=== PATIENT | female | born 1945 | race Two or more races ===

== ENCOUNTER 2025-01-12 05:44 | Emergency (ER) | payer MEDICARE, OTHER ==
[~2025-01-12 05:44] MED LIST: ASPI1TAB20 PO; ATOR20TA; BENA10TA90 PO; GLIM4TAB42 PO; GLYB1.257; LISI40TA16; METO-289; OMEP20CA74 OR; SIMV40TA18 PO
--- NOTE | 2025-01-12 06:51 | ED.PDOC ---
Jam. trauma (HPI) HPI Comments 79-year-old female presents to the ER with daughter and the chief complaint of right-sided rib pain. Patient's daughter reports that the patient fell two weeks ago, and had been complaining of right-sided rib pain. Symptoms rated as mild but concerns for fracture. Denies any other symptoms at this moment. Chief Complaint: Rib Pain Time Seen by MD: 06:50 Primary Care Provider: YAZ Anna notes: Nurses Notes, Medications, Allergies Allergies: Coded Allergies: NO KNOWN ALLERGIES (Unverified , 06/14/10) Home Meds Reported Medications Aspirin (Aspir-81) 81 Mg Tab, 1 TAB PO DAILY, #30 TAB 5 Refills 12/14/13 Glimepiride (Glimepiride) 4 Mg Tab, 1 TAB PO DAILY, #30 TAB 5 Refills 12/14/13 Benazepril Hcl (Benazepril Hcl) 10 Mg Tab, 1 TAB PO DAILY, #30 TAB 5 Refills 12/14/13 Simvastatin (Simvastatin) 40 Mg Tab, 1 TAB PO QPM, #30 TAB 5 Refills 12/14/13 Omeprazole (PRILOSEC) 20 Mg Cap, 40 MG OR DAILY, CAP 12/14/13 Metoprolol Succinate (Metoprolol Succinate Er) 50 Mg Tab 06/14/10 Lisinopril (Lisinopril) 40 Mg Tab 06/14/10 Atorvastatin Calcium (Lipitor) 20 Mg Tab 06/14/10 Glyburide (Glyburide) 1.25 Mg Tab 06/14/10 Information Source: Patient Mode of Arrival: Ambulatory Severity: Moderate Timing: Weeks Duration: Since onset Prehospital treatment: None Location: Chest (Right-sided rib pain) Location of laceration: None Mechanism: Fall (Two weeks ago) Associated signs and symtoms: None Past Medical History PAST MEDICAL HISTORY: Dementia, DM, GERD, High Lipids, HTN Surgical History: Cholecystectomy Surgical History (Other): Bilateral knee replacement BASIC SCIENCES DEAN History: No Pertinent BASIC SCIENCES DEAN History Family History Family History: Reviewed,noncontributory to illness, Unknown Social History Smoker: Non-Smoker Alcohol: Denies ETOH Use Drugs: Denies Drug Use Lives In: Home Constitutional: denies: chills, diaphoresis, fatigue, fever, malaise, sweats, weakness, others EENTM: denies: blurred vision, double vision, ear bleeding, ear discharge, ear drainage, ear pain, ear ringing, eye pain, eye redness, hearing loss, mouth pain, mouth swelling, nasal discharge, nose bleeding, nose congestion, nose pain, photophobia, tearing, throat pain, throat swelling, voice changes, others Respiratory: denies: cough, hemoptysis, orthopnea, SOB at rest, shortness of breath, SOB with excertion, stridor, wheezing, others Cardiovascular: denies: chest pain, dizzy spells, diaphoresis, Dyspnea on exertion, edema, irregular heart beat, left arm pain, lightheadedness, palpitations, PND, syncope, others Gastrointestinal: denies: abdomen distended, abdominal pain, blood streaked bowels, constipated, diarrhea, dysphagia, difficulty swallowing, hematemesis, melena, nausea, poor appetite, poor fluid intake, rectal bleeding, rectal pain, vomiting, others Genitourinary: denies: abnormal vagina bleeding, burning, dyspareunia, dysuria, flank pain, frequency, hematuria, incontinence, pain, , vagina discharge, urgency, others Neurological: denies: dizziness, fainting, headache, left sided numbness, left sided weakness, numbness, paresthesia, pre-existing deficit, right sided numbness, right sided weakness, seizure, speech problems, tingling, tremors, weakness, others Musculoskeletal: reports: others (Right-sided rib pain S/P fall); denies: back pain, gout, joint pain, joint swelling, muscle pain, muscle stiffness, neck pain Integumetry: denies: bruises, change in color, change in hair/nails, dryness, laceration, lesions, lumps, rash, wounds, others Allergic/Immunocompromised: denies: Difficulty Healing, Frequent Infections, Hives, Itching, others Hematologic/Lymphatic: denies: anemia, blood clots, easy bleeding, easy bruising, swollen glands, others Endocrine: denies: excessive hunger, excessive sweating, excessive thirst, excessive urination, flushing, intolerance to cold, intolerance to heat, unexplained weight gain, unexplained weight loss, others Psychiatric: denies: anxiety, bipolar disorder, depression, hopeless, panic disorder, schizophrenia, sleepless, suicidal, others All Other Systems: Reviewed and Negative Physical Exam General Appearance: No Apparent Distress, Normal HEENT: Normal ENT Inspection, Pharynx Normal, TMs Normal Neck: Full Range of Motion, Non-Tender, Normal, Normal Inspection Respiratory: Chest Non-Tender, Lungs Clear, No Accessory Muscle Use, No Respiratory Distress, Normal Breath Sounds Cardiovascular: No Edema, No JVD, No Murmur, No Gallop, Normal Peripheral Pulses, Regular Rate/Rhythm Breast Exam: Deferred Gastrointestinal: No Organomegaly, Non Tender, No Pulsatile Mass, Normal Bowel Sounds, Soft Genitalia: Deferred Pelvic: Deferred Rectal: Deferred Extremities: No calf tenderness, Normal capillary refill, Normal inspection, Normal range of motion, Non-tender, No pedal edema Musculoskeletal : Apperance: Normal Neurologic: Alert, shirt folding machine operator II-XII nml as Tested, No Motor Deficits, Normal Affect, Normal Mood, No Sensory Deficits Cerebellar Function: Normal Reflexes: Normal Skin: Dry, Normal Color, Warm Lymphatic: No Adenopathy Was a procedure done? Was a procedure done?: No Differential Diagnosis Multiple Trauma: Fractures, Other X-Ray, Labs, Meds, VS Vital Signs Date Time Temp Pulse Resp B/P (MAP) Pulse Ox O2 Delivery O2 Flow Rate FiO2 01/12/25 08:42 97.9 84 17 142/68 (92) 97 97.9 01/12/25 08:42 84 16 97 Room Air 01/12/25 05:46 97.9 86 16 147/71 96 97.9 X-Ray, Labs, Meds, VS Comment 79-year-old female presents to the ER with daughter and the chief complaint of right-sided rib pain. Patient arrives alert and oriented, ABC's intact, afebrile, vital signs stable, saturating well in room air Diagnostic imaging ordered by me and results interpreted by radiology :xray Patient is stable for discharge at this time. External notes reviewed. Test results and diagnostic imaging interpreted. All diagnostic findings, discharge care, education and instructions provided Follow-up with PCP in 2 to 3 days Patient verbalized understanding and agreed to treatment plan Vital signs stable, afebrile, no acute distress noted Patient ambulatory with strong steady gait Advised to return precautions for any new or worsening symptoms, return to ER immediately for re-evaluation Patient is aware that the purpose of this visit was for an acute medical emerg ency requiring emergent stabilization. Chronic conditions, including malignancies have not been ruled out. Patient is instructed to follow up with PCP as directed and discharge instructions for continued care and workup. If unable to arrange follow-up, patient is to return to the emergency department for reassessment. Patient (parent or legal guardian if applicable) was given ve rbal and written discharge instructions and acknowledges understanding. Time of 1ST Reevaluation: 07:20 Reevaluation 1ST: Improved Patient Education/Counseling: Diagnosis, Treatment, Prognosis Family Education/Counseling: Diagnosis, Treatment, Prognosis Departure 1 Departure Time of Disposition: 08:32 Impression: Primary Impression: Hip arthritis Qualified Codes: M16.11 - Unilateral primary osteoarthritis, right hip Disposition: 01 HOME / SELF CARE / HOMELESS Condition: Stable Discharged With: Relative Critical Care Note Critical Care Time?: No Stability Stability form required: No Heart Score Heart Score: Heart Score Response (Comments) Value History N/A 0 EKG N/A 0 Age N/A 0 Risk Factors N/A 0 Troponin N/A 0 Total 0 I personally scribed for BRYSON SMITH NP ([email or web address]) on 01/12/25 at 06:51. Electronically submitted by Juan Antonio Schulz ([employer]). I personally scribed for BRYSON SMITH NP ([email or web address]) on 01/12/25 at 07:13. Electronically submitted by Juan Antonio Schulz ([employer]). BRYSON SMITH NP Jan 12, 2025 06:51
--- NOTE | 2025-01-12 08:15 | DVH ---
EXAMINATION: XY R RIB XRAY INDICATION: trauma COMPARISON: None TECHNIQUE: Frontal view of the chest and 2 views of the right ribs FINDINGS: No focal consolidation, pleural effusion or significant pneumothorax. Normal cardiomediastinal silhou ette. Atherosclerotic vascular calcifications of the thoracic aorta are noted. No displaced right rib fracture. IMPRESSION: No acute cardiopulmonary disease. No displaced right rib fracture.
--- NOTE | 2025-01-12 08:20 | DVH ---
CLINICAL INFORMATION: Fall injury. TECHNIQUE: 3 views of the pelvis and right hip were obtained. COMPARISON: None FINDINGS: No acute fracture or dislocation. Moderate to severe joint space narrowing of the right hip . Moderate joint space narrowing of the left hip. There is ossification adjacent to the anterior inf erior iliac spine, may be due to sequelae of tendinopathy or chronic avulsion injury in this location . Small ossific densities adjacent to the greater tuberosity, likely due to tendinopathy. Ovoid ossic le measuring up to 4.5 mm adjacent to the femoral neck, possible loose body in the appropriate clinic al setting. Sclerosis adjacent to the sacroiliac joints also noted. Multiple phleboliths are seen in the pelvis. IMPRESSION: 1. No evidence of acute bony abnormality. 2. Arthritic changes and Nonacute findings as described above. 3. Ossicle adjacent to the femoral neck, for which loose body can not be excluded. Correlate with cl inical findings. If clinically indicated, MRI could be obtained. Workstation: [employer]
[2025-01-12 08:42] VITALS: BP 142/68; PULSE 84; RESP 16; TEMP 97.9; O2SAT 97
== END 2025-01-12 08:44 | disposition home or self-care (01) ==
LOC: ER 05:44
DX: M16.11 Unilateral primary osteoarthritis, right hip (principal); E11.9 Type 2 diabetes mellitus without complications; I10 Essential (primary) hypertension; Z79.899 Other long term (current) drug therapy; Z90.49 Acquired absence of other specified parts of digestive tract
CPT/HCPCS: 71101; 73502